=== PATIENT | male | born 1940 | race Caucasian/White ===

== ENCOUNTER 2020-06-26 19:52 | Inpatient (IN) ==
[2020-06-26 20:23] LABS: Basophils # 0.1 K/mcL (0.0-0.2); Basophils % 0.4 %; Eosinophils # 0.2 K/mcL (0.0-0.6); Eosinophils % 1.4 %; Hematocrit 42.1 % (37.5-50.1); Hemoglobin 12.7 g/dL (12.9-16.9); Immature Granulocytes % 0.4 % (0-4); Lymphocytes # 2.1 K/mcL (0.6-4.6); Lymphocytes % 14.6 %; Mean Corpuscular HGB Conc 30.2 g/dL (31.6-35.5); Mean Corpuscular Hemoglobin 30.5 pg (28.0-33.3); Mean Platelet Volume 10.1 fL (9.4-12.4); Monocytes # 1.6 K/mcL (0.0-1.3); Monocytes % 10.9 %; Neutrophils # 10.3 K/mcL (1.6-8.9); Platelet Count 161 K/mcL (140-400); Red Blood Count 4.17 M/mcL (4.19-5.50); Red Cell Distribution Width 13.2 % (11.5-14.5); Segmented Neutrophils % 72.3 %; White Blood Count 14.2 K/mcL (4.3-11.1)
[2020-06-26 20:33] LABS: INR 1.4; Prothrombin Time 16.3 Seconds (9.4-12.1)
[2020-06-26 20:53] LABS: Alanine Aminotransferase 16 Units/L (7-52); Albumin 3.9 g/dL (3.5-5.7); Albumin/Globulin Ratio 1.4 (1.1-2.2); Alkaline Phosphatase 65 Units/L (34-104); Aspartate Amino Transferase 15 Units/L (13-39); BUN/Creatinine Ratio 16 (6-26); Bilirubin,Total 0.6 mg/dL (0.3-1.0); Blood Urea Nitrogen 27 mg/dL (8-23); Calcium 9.1 mg/dL (8.6-10.3); Carbon Dioxide 41 mEq/L (23-29); Chloride 97 mEq/L (98-107); Globulin 2.7 g/dL (2.4-3.5); Glucose 113 mg/dL (70-105); Osmolality,Calculated 306 (280-300); Potassium 3.7 mEq/L (3.5-5.1); Sodium 145 mEq/L (136-145); Total Protein 6.6 g/dL (6.4-8.9); Troponin I < 0.03 ng/mL (< 0.04); eGFR For African Americans 49 (> 60); eGFR For Non-African Americans 40 (> 60)
[2020-06-26] MEDS ORDERED: levoFLOXacin 500 MG/100 ML 500 MG/100 ML BAG IVPB ONE (21:01)
[2020-06-26 21:45] LABS: Bilirubin,Urine Negative (Negative); Blood,Urine Negative (Negative); Clarity,Urine Clear (Clear); Color,Urine Light-Yellow (Yellow); Glucose,Urine (UA) Normal (Normal); Ketones,Urine Negative (Negative); Leukocyte Esterase,Urine Negative (Negative); Nitrite,Urine Negative (Negative); PH,Urine 5.5 pH Units (5.0-8.0); Protein,Urine Negative (Neg-Trace); Specific Gravity,Urine 1.018 (1.010-1.025); Urobilinogen,Urine Normal (Normal)
[2020-06-26] MEDS ORDERED: Albuterol 2.5 MG/3 ML NEBULIZER IH ONE (22:23)
[2020-06-26 22:54] LABS: Adenovirus Not Detected (Not Detect); Bordetella Pertussis Not Detected (Not Detect); Chlamydophila pneumoniae Not Detected (Not Detect); Coronavirus 229E Not Detected (Not Detect); Coronavirus HKU1 Not Detected (Not Detect); Coronavirus NL63 Not Detected (Not Detect); Coronavirus OC43 Not Detected (Not Detect); Human Metapneumovirus Not Detected (Not Detect); Human Rhinovirus/Enterovirus Not Detected (Not Detect); Influenza A Subtype 2009 H1 Not Detected (Not Detect); Influenza B Not Detected (Not Detect); Mycoplasma pneumoniae Not Detected (Not Detect); Parainfluenza Virus 1 Not Detected (Not Detect); Parainfluenza Virus 2 Not Detected (Not Detect); Parainfluenza Virus 3 Not Detected (Not Detect); Parainfluenza Virus 4 Not Detected (Not Detect); Respiratory Syncytial Virus Not Detected (Not Detect); SARS-CoV-2 Not Detected (Not Detect)
[2020-06-26] MEDS ORDERED: Acetaminophen 325 MG TABLET PO PRN (23:52)
[2020-06-26] MEDS ORDERED: Ondansetron 4 MG/2 ML VIAL IVP PRN (23:52)
[2020-06-26] MEDS ORDERED: Naloxone 0.4 MG/ML INJ IVP PRN (23:52)
[2020-06-27] MEDS: cefTRIAXone 1,000 MG in 0.9 % Sodium Chloride Mini Bag 100 ML IVPB SCH ×2 (00:29→09:39)
[2020-06-27 00:51] LABS: Basophils % 0.3 %; Eosinophils # 0.2 K/mcL (0.0-0.6); Eosinophils % 1.5 %; Hematocrit 40.1 % (37.5-50.1); Hemoglobin 12.2 g/dL (12.9-16.9); Immature Granulocytes % 0.4 % (0-4); Lymphocytes % 15.1 %; Mean Corpuscular HGB Conc 30.4 g/dL (31.6-35.5); Mean Platelet Volume 10.7 fL (9.4-12.4); Monocytes # 1.5 K/mcL (0.0-1.3); Monocytes % 11.1 %; Neutrophils # 9.6 K/mcL (1.6-8.9); Platelet Count 151 K/mcL (140-400); Red Blood Count 3.93 M/mcL (4.19-5.50); Segmented Neutrophils % 71.6 %; White Blood Count 13.4 K/mcL (4.3-11.1)
[2020-06-27] MEDS: *HR* Heparin 5,000 UNIT/ML VIAL SQ SCH ×2 (01:05→06:10)
[2020-06-27 01:13] LABS: Albumin 3.6 g/dL (3.5-5.7); Albumin/Globulin Ratio 1.4 (1.1-2.2); Bilirubin,Total 0.6 mg/dL (0.3-1.0); Calcium 8.7 mg/dL (8.6-10.3); Globulin 2.5 g/dL (2.4-3.5); Potassium 3.6 mEq/L (3.5-5.1); Total Protein 6.1 g/dL (6.4-8.9)
[2020-06-27] MEDS ORDERED: Perflutren Lipid Microsphere 1.3 ML in 0.9 % Sodium Chloride 8.7 ML IVP PRN (02:37)
[2020-06-27] MEDS: Ipratropium/Albuterol Neb 3 ML IH SCH ×6 (03:45→23:30)
[2020-06-27] MEDS ORDERED: MethylPREDNISolone 40 MG/ML VIAL IVP SCH (06:00)
[2020-06-27] MEDS: Furosemide 40 MG/4 ML VIAL IVP SCH ×2 (06:13→20:47)
[2020-06-27] MEDS ORDERED: GuaiFENesin Liq 200 MG/10 ML UDC PO PRN (08:54)
[2020-06-27] MEDS ORDERED: Azithromycin 500 MG in 0.9 % Sodium Chloride 250 ML IVPB SCH (09:00)
[2020-06-27] MEDS: Finasteride 5 MG TABLET PO SCH (09:40)
[2020-06-27] MEDS ORDERED: Tiotropium 10 INH DOSE IH SCH (10:00)
[2020-06-27] MEDS: Apixaban 5 MG TABLET PO SCH ×2 (10:07→20:46)
[2020-06-27] MEDS: Doxycycline 100 MG in 0.9 % Sodium Chloride Mini Bag 100 ML IVPB SCH ×2 (10:08→20:46)
[2020-06-27] MEDS: Budesonide/Formoterol 160/4.5 1 PUFF INH IH SCH ×2 (10:21→19:48)
[2020-06-27 10:28] LABS: ABG Base Excess 13 mEq/L (-2 to 3); ABG HCO3 43 mEq/L (21-27); ABG Oxygen Saturation 90 % (95-98); ABG PCO2 79 mmHg (35-45); ABG PH 7.34 pH Units (7.32-7.45); ABG PO2 65 mmHg (85-104); ABG TCO2 45 mEq/L (20-26)
[2020-06-27] MEDS: MethylPREDNISolone 40 MG/ML VIAL IVP SCH ×2 (14:45→20:47)
[2020-06-27] MEDS: CYCLOSPORINE OP SCH ×2 (20:32→20:47)
[2020-06-28 02:12] LABS: Basophils % 0.1 %; Hematocrit 36.7 % (37.5-50.1); Hemoglobin 11.2 g/dL (12.9-16.9); Immature Granulocytes % 0.6 % (0-4); Lymphocytes # 0.8 K/mcL (0.6-4.6); Lymphocytes % 5.9 %; Mean Corpuscular HGB Conc 30.5 g/dL (31.6-35.5); Mean Corpuscular Hemoglobin 30.4 pg (28.0-33.3); Mean Corpuscular Volume 99.7 fL (83.0-100.0); Mean Platelet Volume 10.8 fL (9.4-12.4); Monocytes # 0.5 K/mcL (0.0-1.3); Monocytes % 4.1 %; Neutrophils # 11.5 K/mcL (1.6-8.9); Platelet Count 147 K/mcL (140-400); Red Blood Count 3.68 M/mcL (4.19-5.50); Red Cell Distribution Width 12.7 % (11.5-14.5); Segmented Neutrophils % 89.3 %; White Blood Count 12.9 K/mcL (4.3-11.1)
[2020-06-28 02:36] LABS: Calcium 8.6 mg/dL (8.6-10.3); Magnesium 1.6 mg/dL (1.6-2.6); Phosphorous 2.1 mg/dL (2.7-4.5); Potassium 4.2 mEq/L (3.5-5.1)
[2020-06-28 02:38] LABS: % Iron Saturation 12 % (20-55); Iron 29 mcg/dL (65-175); Transferrin 168 mg/dL (203-362)
[2020-06-28 02:51] LABS: Ferritin 183 ng/mL (20-250)
[2020-06-28 02:57] LABS: Folate 14.5 ng/mL (3.0-16.0)
[2020-06-28] MEDS: Ipratropium/Albuterol Neb 3 ML IH SCH ×5 (03:41→20:04)
[2020-06-28 04:16] LABS: ABG Base Excess 12 mEq/L (-2 to 3); ABG HCO3 42 mEq/L (21-27); ABG Oxygen Saturation 91 % (95-98); ABG PCO2 81 mmHg (35-45); ABG PH 7.32 pH Units (7.32-7.45); ABG PO2 72 mmHg (85-104); ABG TCO2 44 mEq/L (20-26)
[2020-06-28] MEDS: MethylPREDNISolone 40 MG/ML VIAL IVP SCH ×3 (05:31→21:33)
[2020-06-28] MEDS: Doxycycline 100 MG in 0.9 % Sodium Chloride Mini Bag 100 ML IVPB SCH ×2 (07:55→21:33)
[2020-06-28] MEDS: cefTRIAXone 1,000 MG in 0.9 % Sodium Chloride Mini Bag 100 ML IVPB SCH (07:55)
[2020-06-28] MEDS: Furosemide 40 MG/4 ML VIAL IVP SCH (07:56)
[2020-06-28] MEDS: Apixaban 5 MG TABLET PO SCH ×2 (07:56→21:33)
[2020-06-28] MEDS: Finasteride 5 MG TABLET PO SCH (07:56)
[2020-06-28] MEDS: Budesonide/Formoterol 160/4.5 1 PUFF INH IH SCH ×2 (07:57→20:11)
[2020-06-28] MEDS: Cholecalciferol (D-3) 1,000 UNIT (25MCG) TABLET PO SCH (10:28)
[2020-06-28] MEDS: Loratadine 10 MG TABLET PO SCH (10:28)
[2020-06-28] MEDS: CYCLOSPORINE OP SCH ×2 (10:29→21:34)
[2020-06-29] MEDS: Ipratropium/Albuterol Neb 3 ML IH SCH ×5 (00:15→15:53)
[2020-06-29 02:24] LABS: Basophils % 0.1 %; Hemoglobin 11.2 g/dL (12.9-16.9); Immature Granulocytes % 0.6 % (0-4); Lymphocytes % 4.3 %; Mean Corpuscular HGB Conc 31.1 g/dL (31.6-35.5); Mean Corpuscular Hemoglobin 31.1 pg (28.0-33.3); Mean Platelet Volume 11.5 fL (9.4-12.4); Monocytes # 0.8 K/mcL (0.0-1.3); Monocytes % 4.2 %; Neutrophils # 17.8 K/mcL (1.6-8.9); Platelet Count 157 K/mcL (140-400); Red Cell Distribution Width 13.1 % (11.5-14.5); Segmented Neutrophils % 90.8 %
[2020-06-29 02:26] LABS: Lymphocytes # 0.8 K/mcL (0.6-4.6); White Blood Count 19.6 K/mcL (4.3-11.1)
[2020-06-29 02:48] LABS: Calcium 8.6 mg/dL (8.6-10.3); Magnesium 1.9 mg/dL (1.6-2.6); Phosphorous 3.2 mg/dL (2.7-4.5); Potassium 4.2 mEq/L (3.5-5.1)
[2020-06-29 04:42] LABS: ABG Base Excess 12 mEq/L (-2 to 3); ABG HCO3 41 mEq/L (21-27); ABG Oxygen Saturation 94 % (95-98); ABG PCO2 74 mmHg (35-45); ABG PH 7.35 pH Units (7.32-7.45); ABG PO2 77 mmHg (85-104); ABG TCO2 43 mEq/L (20-26)
[2020-06-29] MEDS: MethylPREDNISolone 40 MG/ML VIAL IVP SCH (05:25)
[2020-06-29] MEDS: Budesonide/Formoterol 160/4.5 1 PUFF INH IH SCH ×2 (07:21→19:55)
[2020-06-29] MEDS ORDERED: Furosemide 40 MG TABLET PO SCH (08:00)
[2020-06-29] MEDS ORDERED: Artificial Tears SOLN 15 ML BOTTLE OP PRN (09:32)
[2020-06-29] MEDS: Apixaban 5 MG TABLET PO SCH ×2 (09:46→20:46)
[2020-06-29] MEDS: Cholecalciferol (D-3) 1,000 UNIT (25MCG) TABLET PO SCH (09:46)
[2020-06-29] MEDS: Finasteride 5 MG TABLET PO SCH (09:46)
[2020-06-29] MEDS: Loratadine 10 MG TABLET PO SCH (09:47)
[2020-06-29] MEDS: cefTRIAXone 1,000 MG in 0.9 % Sodium Chloride Mini Bag 100 ML IVPB SCH (09:47)
[2020-06-29] MEDS: Doxycycline 100 MG in 0.9 % Sodium Chloride Mini Bag 100 ML IVPB SCH ×2 (09:47→20:45)
[2020-06-29] MEDS: GuaiFENesin/Dextromethorphan TABLET PO SCH ×2 (12:01→20:46)
[2020-06-29] MEDS: CYCLOSPORINE OP SCH (13:29)
[2020-06-29] MEDS: Albuterol 2.5 MG/3 ML NEBULIZER IH SCH ×2 (19:55→23:27)
[2020-06-29] MEDS ORDERED: MethylPREDNISolone 40 MG/ML VIAL IVP SCH (20:00)
[2020-06-30 01:58] LABS: Basophils % 0.1 %; Hematocrit 35.8 % (37.5-50.1); Hemoglobin 11.2 g/dL (12.9-16.9); Immature Granulocytes % 0.6 % (0-4); Lymphocytes # 0.7 K/mcL (0.6-4.6); Mean Corpuscular HGB Conc 31.3 g/dL (31.6-35.5); Mean Corpuscular Hemoglobin 31.1 pg (28.0-33.3); Mean Corpuscular Volume 99.4 fL (83.0-100.0); Mean Platelet Volume 11.3 fL (9.4-12.4); Monocytes # 0.6 K/mcL (0.0-1.3); Monocytes % 4.3 %; Platelet Count 151 K/mcL (140-400); Red Cell Distribution Width 13.2 % (11.5-14.5); White Blood Count 14.5 K/mcL (4.3-11.1)
[2020-06-30 02:23] LABS: Calcium 8.4 mg/dL (8.6-10.3); Magnesium 1.7 mg/dL (1.6-2.6); Phosphorous 3.3 mg/dL (2.7-4.5); Potassium 3.9 mEq/L (3.5-5.1)
[2020-06-30] MEDS: Albuterol 2.5 MG/3 ML NEBULIZER IH SCH ×6 (03:42→23:27)
[2020-06-30 04:10] LABS: ABG Base Excess 12 mEq/L (-2 to 3); ABG HCO3 41 mEq/L (21-27); ABG Oxygen Saturation 95 % (95-98); ABG PCO2 72 mmHg (35-45); ABG PH 7.36 pH Units (7.32-7.45); ABG PO2 84 mmHg (85-104); ABG TCO2 43 mEq/L (20-26); Blood Gas Modality BiLevel
[2020-06-30] MEDS: Budesonide/Formoterol 160/4.5 1 PUFF INH IH SCH ×2 (07:46→19:37)
[2020-06-30] MEDS ORDERED: Furosemide 40 MG TABLET PO SCH (09:45)
[2020-06-30] MEDS: Doxycycline 100 MG in 0.9 % Sodium Chloride Mini Bag 100 ML IVPB SCH ×2 (11:57→21:57)
[2020-06-30] MEDS: cefTRIAXone 1,000 MG in 0.9 % Sodium Chloride Mini Bag 100 ML IVPB SCH (11:57)
[2020-06-30] MEDS: Apixaban 5 MG TABLET PO SCH ×2 (11:58→20:29)
[2020-06-30] MEDS: Finasteride 5 MG TABLET PO SCH (11:59)
[2020-06-30] MEDS: GuaiFENesin/Dextromethorphan TABLET PO SCH ×2 (11:59→20:29)
[2020-06-30] MEDS: Loratadine 10 MG TABLET PO SCH (11:59)
[2020-06-30] MEDS: Cholecalciferol (D-3) 1,000 UNIT (25MCG) TABLET PO SCH (11:59)
[2020-06-30] MEDS: predniSONE 20 MG TABLET PO SCH (12:00)
[2020-07-01] MEDS: Albuterol 2.5 MG/3 ML NEBULIZER IH SCH ×3 (04:02→11:33)
[2020-07-01] MEDS: Budesonide/Formoterol 160/4.5 1 PUFF INH IH SCH (07:32)
[2020-07-01 08:27] VITALS: BP 146/65
[2020-07-01] MEDS: Finasteride 5 MG TABLET PO SCH (09:13)
[2020-07-01] MEDS: Cholecalciferol (D-3) 1,000 UNIT (25MCG) TABLET PO SCH (09:13)
[2020-07-01] MEDS: Apixaban 5 MG TABLET PO SCH (09:13)
[2020-07-01] MEDS: Loratadine 10 MG TABLET PO SCH (09:13)
[2020-07-01] MEDS: predniSONE 20 MG TABLET PO SCH (09:13)
[2020-07-01] MEDS: GuaiFENesin/Dextromethorphan TABLET PO SCH (09:13)
== END 2020-07-01 09:27 | disposition home health service (06) ==
LOC: 3ANU 19:52 → EMEROOARM 19:52 → SUATTDRO 23:01 → 3ANU 23:35 → SUATTDRO 06-28 13:26
PROVIDERS: ADMIT Internal Medicine; ATTEND Internal Medicine